=== PATIENT | male | born 1945 | race African-American/Black ===

== ENCOUNTER 2017-04-22 09:36 | Day surgery (SDC) | payer MEDICARE, MEDICAID ==
[~2017-04-22] VITALS: Ht 175.3 cm; Wt 93.0 kg
[~2017-04-22 09:36] MED LIST: ALLEGRA-D 1212 HOUR PO; AMLODIPINE5 MG PO; AMOX/K CLAV875 M1 PO; AMOXICILLIN/CL875 MG PO; ASPIRIN LOW DOS81 MG PO; DEPO-MEDROL80 MG/ML IM; DOMBORO OTIC15 ML AU; FLEXERIL PO; FLEXERIL10 MG PO; FLEXERIL5 M1 PO; FLONASE NASAL50 MCG; FLORASTOR250 M1 PO; GLIMEPIRIDE4 MG OR; GLIMEPIRIDE4 MG PO; LANTUS100 MG/ML SC; LANTUS100 UNIT/M SC; LISINOPRIL10 MG PO; LISINOPRIL5 MG PO; LOSARTAN POT25 MG PO; LOVASTATIN10 M1 OR; LOVASTATIN10 M1 PO; NAPROSYN500 MG PO; NAPROXEN500 MG PO; PLAVIX75 MG PO; PRILOSEC40 MG PO; PROAIR HFA IN; ROBITUSSIN AC10 ML PO; VITAMIN B CO PO; ZITHROMAX250 MG PO; ZYRTEC-D AL1 OR; ZYRTEC-D ALG PO; [UNRECOGNIZED DRUG - SUPPLY]; [UNRECOGNIZED DRUG - SUPPLY] SC
[2017-04-22 11:23] VITALS: BP 138/75
== END 2017-04-22 11:56 | disposition home or self-care (01) ==
LOC: ENDO 09:36 → ORM 15:45 → ENDO 16:45
PROVIDERS: ATTEND Internal Medicine Gastroenterology
PROC: 0DBL8ZX Excision of Transverse Colon, Via Natural or Artificial Opening Endoscopic, Diagnostic (ICD-10-PCS; principal; 2017-04-22)
PROC: 0DBN8ZX Excision of Sigmoid Colon, Via Natural or Artificial Opening Endoscopic, Diagnostic (ICD-10-PCS; 2017-04-22)
DX: R19.5 Other fecal abnormalities (principal); K64.4 Residual hemorrhoidal skin tags; K57.30 Diverticulosis of large intestine without perforation or abscess without bleeding; K64.8 Other hemorrhoids; D12.3 Benign neoplasm of transverse colon; D12.5 Benign neoplasm of sigmoid colon; E11.9 Type 2 diabetes mellitus without complications; I10 Essential (primary) hypertension; E78.00 Pure hypercholesterolemia, unspecified

== ENCOUNTER 2017-06-03 08:49 | Day surgery (SDC) | payer MEDICARE, MEDICAID ==
[~2017-06-03] VITALS: Ht 175.3 cm; Wt 93.0 kg
[~2017-06-03 08:49] MED LIST changes: +B COMPLE2 PO
[2017-06-03 11:33] VITALS: BP 110/70
== END 2017-06-03 11:44 | disposition home or self-care (01) ==
LOC: ENDO 08:49 → ORM 14:15
PROVIDERS: ATTEND Internal Medicine Gastroenterology
PROC: 0DB78ZX Excision of Stomach, Pylorus, Via Natural or Artificial Opening Endoscopic, Diagnostic (ICD-10-PCS; principal; 2017-06-03)
DX: R19.5 Other fecal abnormalities (principal); K57.30 Diverticulosis of large intestine without perforation or abscess without bleeding; K29.50 Unspecified chronic gastritis without bleeding; A04.8 Other specified bacterial intestinal infections; K44.9 Diaphragmatic hernia without obstruction or gangrene; E11.9 Type 2 diabetes mellitus without complications; I10 Essential (primary) hypertension; E78.00 Pure hypercholesterolemia, unspecified; Z86.010 Personal history of colon polyps

== ENCOUNTER 2017-10-10 08:32 | Emergency (ER) | payer MEDICARE, MEDICAID ==
[~2017-10-10] VITALS: Ht 175.3 cm; Wt 96.0 kg
[2017-10-10] MEDS ORDERED: FINASTERIDE5 MG PO (08:43)
[2017-10-10] MEDS ORDERED: MELOXICAM7.5 MG PO (08:43)
[2017-10-10] MEDS ORDERED: EC-NAPROSYN500 MG PO (09:03)
[2017-10-10 09:45] VITALS: BP 129/74
== END 2017-10-10 09:45 | disposition home or self-care (01) ==
LOC: ED 08:32
DX: S40.021A Contusion of right upper arm, initial encounter (principal); I10 Essential (primary) hypertension; E78.00 Pure hypercholesterolemia, unspecified; E11.9 Type 2 diabetes mellitus without complications; V18.0XXA Pedal cycle driver injured in noncollision transport accident in nontraffic accident, initial encounter; Y93.55 Activity, bike riding

== ENCOUNTER 2020-12-30 07:40 | Emergency (ER) | payer MEDICARE, MEDICAID ==
[~2020-12-30] VITALS: Ht 175.3 cm; Wt 100.0 kg
[~2020-12-30 07:40] MED LIST changes: +EC-NAPROSYN500 MG PO; +FINASTERIDE5 MG PO; +MELOXICAM7.5 MG PO
[2020-12-30] MEDS ORDERED: LOSARTAN POTASS50 MG PO (08:00)
[2020-12-30] MEDS ORDERED: HUMALOG 751000 UNITS IV (08:02)
[2020-12-30 08:25] LABS: GFR 54 ML/MIN (>=60 (CALC)); GFR FOR AFR.AMER. > 60 ML/MIN (>=60 (CALC))
[2020-12-30 08:28] LABS: URINE BILIRUBIN - DIPSTICK NEGATIVE (NEGATIVE); URINE BLOOD DIPSTICK TRACE-INTACT (NEGATIVE); URINE COLOR YELLOW; URINE GLUCOSE - DIPSTICK >=1000 mg/dL (NEGATIVE); URINE KETONE NEGATIVE (NEGATIVE); URINE LEUK ESTERASE NEGATIVE (NEGATIVE); URINE NITRITE - DIPSTICK NEGATIVE (Negative); URINE PROTEIN - DIPSTICK TRACE mg/dL (NEG-TRACE); URINE SPECIFIC GRAVITY 1.025; URINE UROBILINOGEN - DIPSTICK 0.2 E.U./dL (0.2)
[2020-12-30 08:29] LABS: HEMATOCRIT 40.9 % (39.0-50.0); HEMOGLOBIN 13.5 g/dl (14.0-18.0); IMMATURE GRANULOCYTES 0.3 % (0.0-5.0); MEAN CELL VOLUME 88.7 fL CALC (80.0-100.0); MEAN CORPUSCULAR HGB 29.3 pG CALC (26.0-32.0); NEUT# 1.2 thou/uL (1.82-7.42); RED BLOOD COUNT 4.61 mill/uL (4.70-6.10); RED CELL DISTRI WIDTH 12.7 % (11.5-15.5)
[2020-12-30 08:54] LABS: ALBUMIN 3.9 g/dL (3.2-5.0); ALKALINE PHOSPHATASE 94 u/l (38-126); BILIRUBIN, TOTAL 0.7 mg/dL (0.0-1.4); BUN 15 mg/dL (8-23); BUN/CREATININE RATIO 12 (12-20 (CALC)); CARBON DIOXIDE 25 mmol/l (22-30); CHLORIDE 96 mmol/l (95-108); CREATININE 1.2 mg/dL (0.7-1.3); GFR 59 ML/MIN (>=60 (CALC)); GFR FOR AFR.AMER. > 60 ML/MIN (>=60 (CALC)); LIPASE 187 u/l (23-300); POTASSIUM 4.8 mmol/l (3.5-5.1); SGOT/AST 33 u/l (19-48)
[2020-12-30 08:57] LABS: ANION GAP 15 (6-22 (CALC)); SODIUM 131 mmol/l (137-146)
[2020-12-30 10:04] VITALS: BP 152/78
== END 2020-12-30 10:02 | disposition home or self-care (01) ==
LOC: ED 07:40
PROVIDERS: Family Medicine
DX: U07.1 COVID-19 (principal); R63.0 Anorexia; R10.33 Periumbilical pain; I10 Essential (primary) hypertension; E11.9 Type 2 diabetes mellitus without complications; Z79.4 Long term (current) use of insulin